=== PATIENT | female | born 1960 | race Caucasian/White ===

== ENCOUNTER 2016-11-30 10:07 | Day surgery (SDC) | payer OTHER, BC ==
--- NOTE | ~2016-11-30 | EGD ---
EGD REPORT [facility] [address] [id number] NAME: ANALILIA NUNEZ : [birth year] STATUS : REG [facility]#: [id number] AGE: 56 ADM/REG DATE : 11/30/16 MR#: [id number] REPORT SERV DATE: 11/30/16 DICTATED BY: AZRA GAITAN DATE: 11/30/16 REPORT STATUS : Draft TRANSCRIBED BY: [facility] DATE: 11/30/16 End[facility] Center Patient Name: Analilia Nunez Date of : 1960 Attending MD: AZRA GAITAN MD Procedure Date No Time: 11/30/2016 Procedure: Colonoscopy Indications: High risk colon cancer surveillance: Personal history of colonic polyps Referring MD: SANGITA KING Medicines: as per anesthesia Complications: No immediate complications. Procedure: Pre-Anesthesia Assessment: - ASA Grade Assessment: I - A normal, healthy patient. After I obtained informed consent, the scope was passed under direct vision. Throughout the procedure, the patient's blood pressure, pulse, and oxygen saturations were monitored continuously. The PCF [id number] was introduced through the anus and advanced to the cecum, identified by appendiceal orifice and ileocecal valve. The colonoscopy was performed without difficulty. The patient tolerated the procedure. The quality of the bowel preparation was adequate to identify polyps. Findings: The perianal and digital rectal examinations were normal. A sessile polyp was found in the ascending colon. The polyp was 4 mm in size. The polyp was removed with a jumbo cold forceps. Resection and retrieval were complete. Impression: - One 4 mm polyp in the ascending colon. Resected and retrieved. Recommendation: - Await pathology results. - Repeat colonoscopy for surveillance based on pathology results. Procedure Code(s): --- Professional --- 55660, Colonoscopy, flexible, proximal to splenic flexure; with biopsy, single or multiple Diagnosis Code(s): --- Professional --- D12.2, Benign neoplasm of ascending colon Z86.010, Personal history of colonic polyps EGD REPORT [facility] [address] [place] [address] [place] [id number] NAME: ANALILIA NUNEZ : [birth year] STATUS : REG [facility]#: [id number] AGE: 56 ADM/REG DATE : 11/30/16 MR#: [id number] REPORT SERV DATE: 11/30/16 DICTATED BY: AZRA GAITAN. DATE: 11/30/16 REPORT STATUS : Draft TRANSCRIBED BY: [employer] DATE: 11/30/16 CPT copyright 2013 [employer]. All rights reserved. The codes documented in this report are preliminary and upon director of clinical trials review may be revised to meet current compliance requirements. AZRA GAITAN MD 11/30/2016 1:42 PM This report has been signed electronically. Number of Addenda: 0 Note Initiated On: 11/30/2016 1:05 PM Scope Withdrawal Time 0 hours 13 minutes [address] [place], [place] [address] [id number]
[~2016-11-30 10:07] MED LIST: CALTRA600D PO; FOSAMAX70 MG PO; MULTIVIT/MIN PO
== END 2016-11-30 23:59 | disposition home or self-care (01) ==
LOC: DMU 10:07
PROVIDERS: Internal Medicine Gastroenterology
PROC: 0DBK8ZX Excision of Ascending Colon, Via Natural or Artificial Opening Endoscopic, Diagnostic (ICD-10-PCS; principal; 2016-11-30 11:30)
DX: Z12.11 Encounter for screening for malignant neoplasm of colon (principal); Z86.010 Personal history of colon polyps; Z88.1 Allergy status to other antibiotic agents; Z91.030 Bee allergy status
CPT/HCPCS: 88305